=== PATIENT | female | born 1950 | race Caucasian/White ===

== ENCOUNTER 2016-11-23 05:48 | Inpatient (IN) | payer OTHER ==
[2016-10-28 11:07] LABS: % IMMATURE GRANULYOCYTES 0.3 % (0.0-1.1); ABSOLUTE IMMATURE GRANULOCYTES 0.03 10^3/uL (0.00-0.10); ADD DIFF? NO; ADD MORPH? NO; ADD SCAN? NO; ATYPICAL LYMPHOCYTE FLAG 10 (0-99); FRAGMENT RBC FLAG 0 (0-99); HEMATOCRIT 45.9 % (38.0-47.0); HEMOGLOBIN 15.5 g/dL (12.6-16.3); LEFT SHIFT FLG 0 (0-99); LIPEMIA HEMOLYSIS FLAG 90 (0-99); MEAN CELL HEMOGLOBIN 30.7 pg (27.9-34.1); MEAN CELL HEMOGLOBIN CONCENTR. 33.8 g/dL (32.4-36.7); MEAN CELL VOLUME 90.9 fL (81.5-99.8); MEAN PLATELET VOLUME 9.1 fL (8.7-11.7); PLATELET CLUMPS FLAG 0 (0-99); PLATELET COUNT 372 10^3/uL (150-400); RED BLOOD CELL COUNT 5.05 10^6/uL (4.18-5.33); RED CELL DISTRIBUTION WIDTH 13.6 % (11.5-15.2)
[2016-11-23] MEDS ORDERED: LIDOCAINE 1% 2 ML INJ ONE (06:04)
[2016-11-23] MEDS ORDERED: DEXAMETHASONE 4 MG/ML VIAL IVP ONE (06:30)
[2016-11-23] MEDS ORDERED: CEFAZOLIN 2 GM/DEXTR 100 ML IV ONE (06:30)
[2016-11-23] MEDS ORDERED: FAMOTIDINE 20 MG TAB PO ONE (06:30)
[2016-11-23] MEDS ORDERED: ACETAMINOPHEN 325 MG TAB PO ONE (06:30)
[2016-11-23] MEDS ORDERED: TRANEXAMIC ACID 820 MG in NS 100 ML IV ONE (06:30)
[2016-11-23] MEDS ORDERED: ROPI/epiNEPH/KETOROLAC JOINT COCKTAIL IU ONE ×2 (06:30→09:00)
[2016-11-23] MEDS ORDERED: CHLORHEXIDINE GLUC HIBICLENS 118 ML BTL TP ONE (06:30)
[2016-11-23] MEDS ORDERED: LR 1,000 ML IV ONE (06:33)
[2016-11-23] MEDS ORDERED: LIDOCAINE 1% 5 ML SDV ID PRN (06:33)
[2016-11-23] MEDS ORDERED: fentaNYL 250 MCG/5 ML INJ ONE (06:38)
[2016-11-23] MEDS ORDERED: MIDAZOLAM 2 MG/2 ML VIAL ONE (06:38)
[2016-11-23] MEDS ORDERED: PROPOFOL 200 MG/20 ML VIAL ONE (06:39)
[2016-11-23] MEDS ORDERED: BUPIVACAINE/EPI 0.5% 30 ML SDV ONE (06:42)
[2016-11-23] MEDS ORDERED: ceFAZolin 1 GM/5 ML SYR ONE (07:12)
[2016-11-23] MEDS ORDERED: PROPOFOL/EMULSION 500 MG/50 ML BOTTLE IV ONE (07:50)
[2016-11-23] MEDS ORDERED: LACTULOSE 20 GM/30 ML UDCUP PO PRN (10:06)
[2016-11-23] MEDS ORDERED: diphenhydrAMINE 25 MG CAP PO PRN (10:06)
[2016-11-23] MEDS ORDERED: traMADol 50 MG TAB PO PRN (10:06)
[2016-11-23] MEDS ORDERED: DIPHENOXYLATE/ATROPINE LOMOTIL 1 TAB PO PRN (10:06)
[2016-11-23] MEDS ORDERED: CYCLOBENZAPRINE 10 MG TAB PO PRN (10:06)
[2016-11-23] MEDS ORDERED: POLYETHYLENE GLYCOL 3350 17 GM PKT PO PRN (10:06)
[2016-11-23] MEDS ORDERED: METOCLOPRAMIDE 10 MG/2 ML VIAL IVP PRN (10:06)
[2016-11-23] MEDS ORDERED: MAGNESIUM HYDROXIDE 30 ML UDCUP PO PRN (10:06)
[2016-11-23] MEDS ORDERED: BISACODYL 10 MG SUPP PR PRN (10:06)
[2016-11-23] MEDS ORDERED: TEMAZEPAM 15 MG CAP PO PRN (10:06)
[2016-11-23] MEDS ORDERED: KETOROLAC 30 MG/1 ML SDV IVP PRN (10:06)
[2016-11-23] MEDS ORDERED: PHARMACY PAIN CONSULT 1 EA MISC PRN (10:06)
[2016-11-23] MEDS ORDERED: ONDANSETRON DISINTEGRATING 4 MG TAB PO PRN (10:06)
[2016-11-23] MEDS ORDERED: PROMETHAZINE HCL 25 MG SUPPR PR PRN (10:06)
[2016-11-23] MEDS ORDERED: ONDANSETRON 4 MG/2 ML VIAL IVP PRN (10:06)
--- NOTE | 2016-11-23 10:13 | POSTOPPROG ---
Post Op Note Date of Operation: 11/23/16 Surgeon: Hans Swann Tool Maker Apprentice: Natali Chakraborty PA-C Anesthesiologist: Misa Anesthesia: Spinal Pre-op Diagnosis: Left knee osteoarthritis Post-op Diagnosis: Left knee osteoarthritis Procedure: Left TKA Findings: See full dictation Inf/Abcess present in the surg proc area at time of surgery?: No Depth: Deep Incisional (Fascial) EBL: Minimal Complications: None
[2016-11-23] MEDS ORDERED: NS 1,000 ML IV SCH (10:15)
[2016-11-23] MEDS: ACETAMINOPHEN 325 MG TAB PO SCH ×2 (11:43→17:50)
[2016-11-23] MEDS: ceFAZolin 2 GM/DEXTROSE 100 ML IV SCH ×2 (13:45→22:12)
--- NOTE | 2016-11-23 14:02 | GOP ---
[f rep st] OPERATIVE REPORT DATE OF OPERATION: 11/23/2016 SURGEON: Hans Swann MD PANTOGRAPH ENGRAVER: Natali Chakraborty. ANESTHESIA: Spinal. PREOPERATIVE DIAGNOSIS: POSTOPERATIVE DIAGNOSIS: Left knee osteoarthritis. PROCEDURE PERFORMED: Left total knee arthroplasty. FINDINGS: DESCRIPTION OF PROCEDURE: Patient taken to the operating room, administered spinal anesthesia, plac ed in the supine position and had her left lower extremity prepped and draped in normal sterile fash ion. Esmarch exsanguination performed followed by elevation of thigh cuff to 300 mmHg pressure. Midline incision was made through dermal subcutaneous tissues. Medial parapatellar incision was made . The patella was reflected laterally. The anterior portion of medial and lateral menisci were excis ed. The ACL stump was removed. The patella was measured. A 9 mm cut was assessed for thickness. It w as made with an oscillating saw. The trial patellar button fit nicely. It was a size 32. The distal femur was then exposed. The distal femoral drill guide was placed on the distal femur. Two drill lug s were drilled down to the level of subchondral bone and medial and lateral femoral condyle. The dis carlos alberto femoral cutting guide was then placed in the distal femur and indexed off the distal femoral sub chondral bone, both medially and laterally. We pinned this in position. Our distal femoral cut was t hen made with the oscillating saw. There was no step cut. Cut was then assessed. It was felt to be p erfectly flat. The tibia subluxed anteriorly. The posterior portion of the medial and lateral menisc i were excised. The tibial articular surface was removed medially and laterally with the curette. Th e tibial cutting guide was then placed in the tibia and indexed off the anterior cortex and subchond ral bone on the medial and lateral tibial plateaus. This was then pinned into position. Our tibial c ut was then made with the oscillating saw. This wafer of bone was then removed. The flexion extensio n gaps were assessed with the respective spacers and felt to be appropriate. The AP cutting block wa s then placed on 2 pins that were drilled in the distal femur. Rotational axis was assessed with the flexion guide in place. The block was then pinned in the appropriate rotation. The AP cuts were mad e followed by the anterior chamfer cut. Posterior chamfer cutting guide was then placed on the 2 pre viously drilled lugs in the distal femur. The 2 posterior chamfer cuts were then made with the oscil lating saw. Trial femur was put in place. Osteophytes were removed from around it. The trial tibia w as put in place. The knee was put through flexion extension arc of motion. A rotational axis was ass essed and marked in the tibia. The trials were then brought out. The tibial tray was placed on the tibia and pinned in the appropriate alignment. The metaphyseal dri ll was then drilled down through the metaphysis. The metaphyseal fin cutting block was then impacted in the proximal tibia. We subsequently commenced with our cement mixing. All surfaces were thorough ly lavaged and dried. Tibia was cemented into place followed by the femur followed by the patella. T he trial reduction was performed with a 6 medial and A lateral. We felt this was slightly loose in m id flexion. We therefore went with a 7 medial a B lateral insert. This was felt to be more appropria te. The real inserts were then exchanged for the trial inserts. The knee was put through flexion, ex tension, arc of motion and was felt to be stable. Thorough lavage performed with normal saline. A co cktail was used to infiltrate deep in subcutaneous tissues. The tourniquet was then let down. Small bleeders were cauterized. Thorough lavage performed with normal saline. The retinaculum was then wali pproximated with a #1 Vicryl suture followed by closure of subcutaneous tissue with a 2-0 Vicryl sut ure followed by closure of the dermis with calin. Sterile compression dressing applied followed by cryo cuff and pneumatic compression stockings. The patient tolerated procedure well, was transferred back to recovery room in stable condition. No operative complications. POSTOPERATIVE DIAGNOSIS: Left knee osteoarthritis. COMPLICATION: None. IMPLANT: ConforMIS. /[id number]/MODL
[2016-11-23] MEDS: NICOTINE 21 MG/24 HR PATCH TD SCH (15:30)
[2016-11-23] MEDS: oxyCODONE IR 5 MG TAB PO PRN (19:02)
[2016-11-23] MEDS: FAMOTIDINE 20 MG TAB PO SCH (20:25)
[2016-11-23] MEDS: SENNOSIDES/DOCUSATE SODIUM TAB PO SCH (20:26)
[2016-11-23] MEDS ORDERED: ATORVASTATIN CALCIUM 10 MG TAB PO SCH (21:00)
[2016-11-23] MEDS ORDERED: NON-FORMULARY NEW DRUG (Simvastatin [Zocor] 20 MG) PO SCH (21:00)
[2016-11-23] MEDS ORDERED: METHIMAZOLE 5 MG TAB PO SCH (21:00)
[2016-11-24] MEDS: ACETAMINOPHEN 325 MG TAB PO SCH ×2 (00:08→05:18)
[2016-11-24] MEDS: oxyCODONE IR 5 MG TAB PO PRN ×3 (00:08→07:56)
[2016-11-24 05:35] LABS: HEMATOCRIT 37.1 % (38.0-47.0); HEMOGLOBIN 12.2 g/dL (12.6-16.3)
[2016-11-24 05:47] LABS: INR 1.14 (0.83-1.16); PROTIME(PATIENT) 14.5 SEC (12.0-15.0)
[2016-11-24 07:47] VITALS: RESP 18; O2SAT 90
[2016-11-24] MEDS: NICOTINE 21 MG/24 HR PATCH TD SCH (07:55)
[2016-11-24] MEDS: FAMOTIDINE 20 MG TAB PO SCH (07:55)
[2016-11-24] MEDS: SENNOSIDES/DOCUSATE SODIUM TAB PO SCH (07:55)
--- NOTE | 2016-11-24 08:14 | SOAPPROG ---
SOAP Progress Note Assessment/Plan: Assessment/Plan: s/p left TKA POD#1 - Continue pain management - Continue warfarin for VTE chemoprophylaxis - Continue SCDs/TEDs for mechanical prophylaxis - Continue PT/OT - Likely discharge today pending PT approval 11/24/16 08:10 Subjective: Pt states her pain is well controlled and she has been OOB without difficulty. Pt denies fever, chills, SOB, chest pain, abdominal pain, N/V/D, numbness, tingling, and calf pain. Objective: Vital Signs Temp Pulse Resp BP Pulse Ox 36.6 C 77 18 122/73 H 90 L 11/24/16 07:45 11/24/16 07:45 11/24/16 07:45 11/24/16 07:45 11/24/16 07:45 Laboratory Results 11/24/16 04:54 11/23/16 11/24/16 11/25/16 05:59 05:59 05:59 Intake Total 3050 Output Total 920 Balance 2130 PT 14.5 SEC (12.0-15.0) 11/24/16 04:54 INR 1.14 (0.83-1.16) 11/24/16 04:54 Physical Exam - Physical Exam General Appearance: alert, no apparent distress Cardiac/Chest: normal peripheral pulses Skin: normal color, warm/dry, other (Incision site c/d/i) Extremities: normal capillary refill, swelling (local swelling L knee), other ( SCDs/TEDs in place b/l), No pedal edema, No calf tenderness, No Priscila's sign Neuro/Psych: no motor/sensory deficits, alert, normal mood/affect ICD10 Worksheet Patient Problems: Problems Problem Status Onset Osteoarthritis of left knee Acute - ICD10 Problem Qualifiers (1) Osteoarthritis of left knee Qualifiers: Osteoarthritis type: primary Qualified Code(s): M17.12 - Unilateral primary osteoarthritis, left knee
[2016-11-24 11:52] VITALS: BP 131/63; PULSE 376; TEMP 97.6
--- NOTE | 2016-11-24 15:56 | PDDCSUM ---
Discharge Summary Discharge Summary: 66y/o F was admitted the morning of surgery for a left TKA for left knee osteoarthritis. Pt tolerated the surgery well. Pain was well-controlled. Pt received one dose of Ancef prior to surgery and for 24-hours post-operatively for infection prophylaxis. Pt had SCDs/TEDs for mechanical prophylaxis and warfarin for VTE chemoprophylaxis. Pt was evaluated by PT/OT. Hospital course was otherwise uneventful.
== END 2016-11-24 13:21 | disposition home or self-care (01) | DRG 470 ==
LOC: F3N 05:48
PROVIDERS: ADMIT Orthopaedic Surgery Sports Medicine; ATTEND Orthopaedic Surgery Sports Medicine
PROC: 0SRD0J9 Replacement of Left Knee Joint with Synthetic Substitute, Cemented, Open Approach (ICD-10-PCS; principal; 2016-11-23 07:15)
DX: M17.12 Unilateral primary osteoarthritis, left knee (principal); E78.00 Pure hypercholesterolemia, unspecified; F17.210 Nicotine dependence, cigarettes, uncomplicated
CPT/HCPCS: 97110-GP; 97116-GP; 97161-GP; 97165-GO; 97535-GO; C1713; J0171; J0690; J1100; J1885; J2250; J2704; J2795; J3010